=== PATIENT | male | born 1935 | race Caucasian/White ===

== ENCOUNTER 2017-12-14 10:11 | Inpatient (IN) | payer OTHER, MEDICARE ==
[~2017-12-14] VITALS: Ht 177.8 cm; Wt 64.7 kg
--- NOTE | 2017-12-14 11:25 | ED NECK/BACK PAIN COMPLAINT ---
See Addendum History of Present Illness General Chief Complaint: General Adult Stated Complaint: BIBA FOR NAE HIP PAIN Source: patient, family Exam Limitations: no limitations Vital Signs & Intake/Output Vital Signs & Intake/Output Vital Signs Date Time Temp Pulse Resp B/P B/P Pulse O2 O2 Flow FiO2 Mean Ox Delivery Rate 12/14 1328 98.2 80 20 127/67 97 Room Air 12/14 1022 Room Air Room Air 12/14 1012 98.4 88 20 139/80 96 Room Air Allergies Coded Allergies: NO KNOWN ALLERGIES (07/10/11) Triage Note: BIBA FROM HOME WITH REPORT OF INCREASED BILATERAL THIGH SPASMS AND PAIN. PATIENT HAS HX OF PARKINSONS. PATIENT ARRIVES, ALERT, ORIENTED, SPEECH CLEAR. PATIENT REPORTS HX OF BILATERAL HIP SURGERY AND STATES "I HAVE A BROKEN PELVIS". PATIENT CHANGED INTO HOSPITAL GOWN, VITALS OBTAINED. FALL PRECAUTIONS IN PLACED. AWAITING PROVIDER EVAL. Triage Nurses Notes Reviewed? yes Onset: Gradual Duration: getting worse Timing: recent history Quality/Severity: severe, radiation Location: lumbar spine, paraspinous muscles HPI: Patient is a 81-year-old male with a past medical history of multiple falls Parkinson's who lives in a private residence with family members however they do receive home health aide where he states approximately 2 months ago he had a mechanical fall and fractured his pelvis however patient presents emergency room BIBA for concerns of a 3-5 day history of back pain and muscle spasms in burning sensation down his bilateral lower extremities. Patient states that the pain was too severe to get out of bed today patient was brought IN BY AMBULANCE. Patient denies any fevers chills chest pain shortness of breath leg swelling abdominal pain nausea vomiting. Patient can tolerate by mouth. Patient denies any mechanism injury or recent falls Patient states that at rest he has no pain (Bjorn Waggoner) Past History Travel History Traveled to [place] past 21 day No Medical History Any Pertinent Medical History? see below for history Neurological: Parkinson's disease EENT: NONE Cardiovascular: hyperlipidemia, ?IRREGULAR HEART RATE Respiratory: NONE Gastrointestinal: NONE Hepatic: NONE Renal: NONE Musculoskeletal: PELVIC FRACTURE Psychiatric: NONE Endocrine: NONE Blood Disorders: NONE Cancer(s): NONE ORAL AND MAXILLOFACIAL SURGERY RESIDENT/Reproductive: NONE Surgical History Surgical History: non-contributory Psychosocial History Who do you live with Daughter Services at Home None What is your primary language Micronesian Tobacco Use: Never used ETOH Use: denies use Illicit Drug Use: denies illicit drug use Family History Hx Contributory? No (Bjorn Waggoner) Review of Systems Review of Systems Constitutional: Reports: no symptoms. Eyes: Reports: no symptoms. Ears, Nose, Throat, Mouth: Reports: no symptoms. Respiratory: Reports: no symptoms. Cardiovascular: Reports: no symptoms. Gastrointestinal/Abdominal: Reports: no symptoms. Musculoskeletal: Reports: see HPI, back pain, muscle pain. Skin: Reports: no symptoms. Neurological/Psychological: Reports: no symptoms. All Other Systems: Reviewed and Negative (Bjorn Waggoner) Physical Exam Physical Exam General Appearance: no apparent distress, alert, comfortable Head: atraumatic Eyes: Bilateral: normal appearance. Ears, Nose, Throat, Mouth: hearing grossly normal Neck: normal inspection, supple Respiratory: chest non-tender, no respiratory distress Cardiovascular: regular rate/rhythm Peripheral Pulses: 2+ radial (R) Gastrointestinal: normal bowel sounds, soft, tenderness Back: GENERALIZED BACK PAIN UPON PALPATION Extremities: non-tender Neurologic/Psych: awake, alert Skin: intact, normal color Comments: Bilateral lower extremity mild decreased active range of motion with hip flexion however patient was able to perform straight leg raise Bilateral lower extremities dermatomes intact pedal pulses +2 Core Measures CVA/TIA Diagnosis: No (Bjorn Waggoner) Progress Differential Diagnosis: AAA, aortic dissection, C spine injury, carotid dissection, cauda equina syn, herniated disc, myofascial strain, pyelo/UTI, sciatica, spinal cord inj, thoracic outlet syn, T/L spine injury, ureterolithiasis Plan of Care: Orders Procedure Date/time Status Heart Healthy Diet 12/14 D Active TROPONIN LEVEL 12/14 1126 Complete COMPREHENSIVE METABOLIC PANEL 12/14 1126 Complete CBC WITHOUT DIFFERENTIAL 12/14 112 Complete EKG 12/14 1126 Active Laboratory Tests 12/14/17 1140: Anion Gap 9, Estimated GFR > 60, BUN/Creatinine Ratio 26.7 H, Glucose 111 H, Calcium 9.1, Total Bilirubin 0.8, AST 24, ALT 13 L, Alkaline Phosphatase 183 H , Troponin I < 0.01, Total Protein 6.6, Albumin 3.3 L, Globulin 3.3, Albumin/ Globulin Ratio 1.0 L, CBC w Diff NO MAN DIFF REQ, RBC 4.16 L, MCV 86.2, MCH 28.8, MCHC 33.5, RDW 15.9 H, MPV 8.1, Gran % 91.9 H, Lymphocytes % 3.1 L, Monocytes % 4.9, Eosinophils % 0.1, Basophils % 0, Absolute Granulocytes 11.7 H , Absolute Lymphocytes 0.4 L, Absolute Monocytes 0.6, Absolute Eosinophils 0, Absolute Basophils 0 Patient has bilateral lower extremities were neurovascularly intact Patient has nontender abdomen CT scan was resulted in which I discussed results with patient and family members for concerns of multiple compression fractures of lumbar vertebral bodies, Patient was given IV morphine patient was supervised by me for ambulatory trial where he was unable to get out of bed due to pain. Due to patient's past medical history of Parkinson's multiple histories of falls and recent diagnosis of compression fracture of lumbar vertebral bodies that outpatient therapy would be medically harmful Discussed admission with patient and family members who agree Diagnostic Imaging: Viewed by Me: Radiology Read. Radiology Impression: acute abnormality Initial ED EKG: MULTIPLE NONSPECIFIC ARTIFACT, 107 BPM,PVC Comments: PATIENT: SRINIVASAN SANON I PRESENT AGE: 81 PATIENT ACCOUNT NO: [id number] : 33 LOCATION: [facility] ORDERING PHYSICIAN: Bjorn FELICIANO SERVICE DATE: 12/14/17 EXAM TYPE: CAT - CT ABD & PELVIS W/O IV CONTRAS EXAMINATION: CT ABDOMEN AND PELVIS WITHOUT CONTRAST CLINICAL INFORMATION: 81-year-old male with pelvic pain and low back pain. COMPARISON: CT images of abdomen and pelvis from 07/10/2011. TECHNIQUE: Multidetector volumetric imaging was performed from the superior aspect of the liver through the pubic symphysis. Sagittal and coronal reformatted images were obtained on the technologist's workstation. DLP: 486 mGy-cm FINDINGS: LUNG BASES: Atherosclerotic calcification of coronary arteries and thoracic aorta. No pericardial or pleural effusion. Mild bronchiectasis in visualized lower lobes. Linear and curvilinear opacities of atelectasis within the left lower lobe and, to lesser extent, right lower lobe. No overt consolidation. LIVER, GALLBLADDER, AND BILIARY TREE: Liver has normal size, contour and attenuation. No evidence of intrahepatic bile duct dilatation or hepatic mass on these noncontrast images. A 0.5 cm rim calcified gallstone is present within the lumen of the gallbladder. No gallbladder wall edema or pericholecystic fluid. PANCREAS: Pancreas is diffusely atrophied. No peripancreatic edema. SPLEEN: Unremarkable. ADRENAL GLANDS: Unremarkable. KIDNEYS AND URETERS: No nephrolithiasis or hydronephrosis. There are bilateral renal cortical cysts, largest of the left lower pole measuring up to 3.1 cm. The ureters are unremarkable. No evidence of ureterolithiasis or hydronephrosis. The most distal ureteral segments are poorly evaluated due to streak artifact produced by the bilateral hip arthroplasty components. BLADDER: Grossly unremarkable, but suboptimally evaluated due to streak artifact by the arthroplasty hardware. GASTROINTESTINAL TRACT: Bowel loops are normal in caliber. Large amount stool is present within the colon; this suggests possibility of constipation. There is pancolonic diverticulosis without evidence of diverticulitis. No abdominal abscess, ascites or pneumoperitoneum. ABDOMINAL WALL: No acute findings in the abdominal wall. The rectus abdominis muscles are atrophied and fatty replaced. No abdominal wall hernia. LYMPH NODES: No pathologic sized lymph nodes in the abdomen or pelvis. VASCULAR: Atherosclerotic calcification of abdominal aorta, proximal renal arteries and iliofemoral arteries. No aneurysm. No retroperitoneal hematoma. PELVIC VISCERA: Prostate gland is suboptimally visualized due to the streak artifact. The prostate gland currently measures approximately 5 cm transverse, 3.6 cm AP (compared to size of 6.5 x 5.5 cm on 07/10/2011). No pelvic free fluid. OSSEOUS STRUCTURES: Bones are diffusely osteoporotic. Concave compression fracture deformity of the L1 inferior endplate resulting in approximately 35% central height loss of the L1 vertebral body. Also, there is a subacute compression fracture of the L2 vertebral body with extension of gas into the fracture plane adjacent to the inferior endplate. There is approximately 25-30% central height loss of the L2 vertebral body. There is mild concavity of the endplates of L3, L4 and L5 vertebra without acute fractures. There are insufficiency fractures with surrounding sclerosis and ossific debris of bilateral sacral ala and of the adjacent left iliac bone with intra-articular extension of the fracture at the posterior left sacroiliac joint. Findings include fracture buckling of cortex through the region of junction of the S2 and S3 segments. Again, pelvic bones are suboptimally evaluated due to the streak artifact produced by the hip arthroplasty hardware. There is callus around fractures of right and left superior rami and right pubic bone. Also, callus and heterotopic ossification are observed around displaced fractures of the inferior pubic rami. IMPRESSION: 1. Pancolonic diverticulosis without diverticulitis. 2. Cholelithiasis without cholecystitis. 3. No acute findings along the urinary tracts. There are bilateral renal cortical cysts. 4. Skeletal findings include diffuse osteoporosis, compression fractures of the L1 and L2 vertebral bodies, and insufficiency fractures of the sacrum, adjacent left iliac bone and pubic rami. DICTATED BY: Juan Alejo MD DATE/TIME DICTATED:12/14/171235 ACUPUNCTURIST:GUERO DATE/TIME TRANSCRIBED:12/14/171235 CONFIDENTIAL, DO NOT COPY WITHOUT APPROPRIATE AUTHORIZATION. <Electronically signed in Other Vendor System> SIGNED BY: Juan Alejo MD 12/14/17 1301 (Bjorn Waggoner) Departure Departure Disposition: STILL A PATIENT Condition: Stable Clinical Impression Primary Impression: Compression fracture of L1 lumbar vertebra Secondary Impressions: Compression fracture of L2 lumbar vertebra, Inability to bear weight Referrals: Remington Woodward MD (PCP/Family) Departure Forms: Customer Survey General Discharge Information Admission Note Spoke With: Sha AZUL,Norberto Sewell Documentation of Exam: Documentation of any treatments & extenuating circumstances including Concerns Regarding Discharge (functional status, medication knowledge or non-compliance, living conditions, etc.) that warrant an admission rather than observation: [ Patient requires general medicine admission for concerns of multiple compression fractures of lumbar vertebral bodies, patient was unable to ambulate due to pain patient cries IV pain medication and possible short-term rehabilitation after admission,] (Bjorn Waggoner) PA/INSURANCE AND BENEFITS CLERK Co-Sign Statement Statement: ED Attending supervision documentation- [x] I saw and evaluated the patient. I have also reviewed all the pertinent lab results and diagnostic results. I agree with the findings and the plan of care as documented in the PA's/INSURANCE AND BENEFITS CLERK's documentation. Patient presents for evaluation of a severe burning back pain. Physical examination reveals a comfortable appearing gentleman while at rest with normal sensation to the lower extremities. [] I have reviewed the ED Record and agree with the PA's/INSURANCE AND BENEFITS CLERK's documentation. [] Additions or exceptions (if any) to the PAs/INSURANCE AND BENEFITS CLERK's note and plan are summarized below: [] (Audra AZUL,Jason Bender)
[2017-12-14 11:54] LABS: ABSOLUTE BASOPHIL COUNT 0 /CUMM (0.0-0.2); ABSOLUTE EOSINOPHIL COUNT 0 /CUMM (0.0-0.7); ABSOLUTE GRANULOCYTE CT 11.7 /CUMM (1.4-6.5); ABSOLUTE LYMPH COUNT 0.4 /CUMM (1.2-3.4); ABSOLUTE MONOCYTE COUNT 0.6 /CUMM (0.10-0.60); BASOPHIL % 0 % (0.0-2.0); EOSINOPHIL % 0.1 % (0-5); HEMATOCRIT 35.9 % (42-52); MEAN CORPUSCULAR HGB 28.8 PG (27.0-31.0); MEAN CORPUSCULAR HGB CONC 33.5 G/DL (33.0-37.0); MEAN CORPUSCULAR VOLUME 86.2 FL (80.0-94.0); MEAN PLATELET VOLUME 8.1 FL (7.4-10.4); PLATELET COUNT 426 /CUMM (130-400); RBC DISTRIBUTION WIDTH 15.9 % (11.5-14.5); RED BLOOD CELL CT 4.16 /CUMM (4.70-6.10); WHITE BLOOD CELL COUNT 12.7 /CUMM (4.8-10.8)
[2017-12-14 12:34] LABS: GRANULOCYTE % 91.9 % (42.2-75.2)
--- NOTE | 2017-12-14 13:01 | CT SCAN REPORT ---
EXAMINATION: CT ABDOMEN AND PELVIS WITHOUT CONTRAST CLINICAL INFORMATION: 81-year-old male with pelvic pain and low back pain. COMPARISON: CT images of abdomen and pelvis from 07/10/2011. TECHNIQUE: Multidetector volumetric imaging was performed from the superior aspect of the liver through the pubic symphysis. Sagittal and coronal reformatted images were obtained on the technologist's workstation. DLP: 486 mGy-cm FINDINGS: LUNG BASES: Atherosclerotic calcification of coronary arteries and thoracic aorta. No pericardial or pleural effusion. Mild bronchiectasis in visualized lower lobes. Linear and curvilinear opacities of atelectasis within the left lower lobe and, to lesser extent, right lower lobe. No overt consolidation. LIVER, GALLBLADDER, AND BILIARY TREE: Liver has normal size, contour and attenuation. No evidence of intrahepatic bile duct dilatation or hepatic mass on these noncontrast images. A 0.5 cm rim calcified gallstone is present within the lumen of the gallbladder. No gallbladder wall edema or pericholecystic fluid. PANCREAS: Pancreas is diffusely atrophied. No peripancreatic edema. SPLEEN: Unremarkable. ADRENAL GLANDS: Unremarkable. KIDNEYS AND URETERS: No nephrolithiasis or hydronephrosis. There are bilateral renal cortical cysts, largest of the left lower pole measuring up to 3.1 cm. The ureters are unremarkable. No evidence of ureterolithiasis or hydronephrosis. The most distal ureteral segments are poorly evaluated due to streak artifact produced by the bilateral hip arthroplasty components. BLADDER: Grossly unremarkable, but suboptimally evaluated due to streak artifact by the arthroplasty hardware. GASTROINTESTINAL TRACT: Bowel loops are normal in caliber. Large amount stool is present within the colon; this suggests possibility of constipation. There is pancolonic diverticulosis without evidence of diverticulitis. No abdominal abscess, ascites or pneumoperitoneum. ABDOMINAL WALL: No acute findings in the abdominal wall. The rectus abdominis muscles are atrophied and fatty replaced. No abdominal wall hernia. LYMPH NODES: No pathologic sized lymph nodes in the abdomen or pelvis. VASCULAR: Atherosclerotic calcification of abdominal aorta, proximal renal arteries and iliofemoral arteries. No aneurysm. No retroperitoneal hematoma. PELVIC VISCERA: Prostate gland is suboptimally visualized due to the streak artifact. The prostate gland currently measures approximately 5 cm transverse, 3.6 cm AP (compared to size of 6.5 x 5.5 cm on 07/10/2011). No pelvic free fluid. OSSEOUS STRUCTURES: Bones are diffusely osteoporotic. Concave compression fracture deformity of the L1 inferior endplate resulting in approximately 35% central height loss of the L1 vertebral body. Also, there is a subacute compression fracture of the L2 vertebral body with extension of gas into the fracture plane adjacent to the inferior endplate. There is approximately 25-30% central height loss of the L2 vertebral body. There is mild concavity of the endplates of L3, L4 and L5 vertebra without acute fractures. There are insufficiency fractures with surrounding sclerosis and ossific debris of bilateral sacral ala and of the adjacent left iliac bone with intra-articular extension of the fracture at the posterior left sacroiliac joint. Findings include fracture buckling of cortex through the region of junction of the S2 and S3 segments. Again, pelvic bones are suboptimally evaluated due to the streak artifact produced by the hip arthroplasty hardware. There is callus around fractures of right and left superior rami and right pubic bone. Also, callus and heterotopic ossification are observed around displaced fractures of the inferior pubic rami. IMPRESSION: 1. Pancolonic diverticulosis without diverticulitis. 2. Cholelithiasis without cholecystitis. 3. No acute findings along the urinary tracts. There are bilateral renal cortical cysts. 4. Skeletal findings include diffuse osteoporosis, compression fractures of the L1 and L2 vertebral bodies, and insufficiency fractures of the sacrum, adjacent left iliac bone and pubic rami.
--- NOTE | 2017-12-14 14:10 | History & Physical ---
[facility]9: General Information and HPI MD Statement: I have seen and personally examined SRINIVASAN SANON I and documented this H&P. The patient is a 81 year old M who presented with a patient stated chief complaint of [bilateral leg pain]. Source of Information: patient, family Exam Limitations: physical impairment History of Present Illness: 81-year-old gentleman with past medical history of Parkinson's disease, recent pelvic fracture in September 2017, hyperlipidemia, diverticulosis, colon polyp, GI bleed [in 2010 patient had 1 unit of blood transfusion], BPH, peptic ulcer disease was brought in by his daughter with complaints of bilateral thigh pain with no radiation. Apparently patient was in usual state of health until 5 days ago, developed moderate pain in both thighs more of burning in sensation with no radiation or relieving factors. Today patient woke up with severe 10 x 10 bilateral burning sensation in both eyes with no radiation, numbness, decreased sensation. Patient denies fall, loss of consciousness, palpitations, dizziness, incontinence of bowel and bladder, chest pain, shortness of breath, headache, weakness. Patient lives with this daughter and cousin and has a health aide at home. Allergies/Medications Allergies: Coded Allergies: NO KNOWN ALLERGIES (07/10/11) Home Med list Carbidopa/Levodopa (Carbidopa-Levodopa 25-100 Tab) 25 MG-100 MG TABLET 1 TAB PO TID PARKINSONS (Reported) Finasteride 5 MG TABLET 1 TAB PO DAILY PROSTATE (Reported) [place]-3 Fatty Acids/Fish Oil (Fish Oil 1,000 MG Capsule) 340 MG-1,000 MG CAPSULE 2 CAP PO DAILY SUPPLEMENT (Reported) Simvastatin (Simvastatin*) 80 MG TABLET 1 TAB PO DAILY CHOLESTEROL (Reported) Tamsulosin HCl 0.4 MG CAP.ER.24H 2 CAP PO DAILY PROSTATE (Reported) Venlafaxine HCl (Venlafaxine HCl ER) 75 MG CAP.ER.24H 1 CAP PO DAILY ANXIETY (Reported) Compliance With Home Meds: GOOD Past History Travel History Traveled to [place] past 21 day No Medical History Neurological: Parkinson's disease EENT: NONE Cardiovascular: hyperlipidemia, ?IRREGULAR HEART RATE Respiratory: NONE Gastrointestinal: NONE Hepatic: NONE Renal: NONE Musculoskeletal: PELVIC FRACTURE Psychiatric: NONE Endocrine: NONE Blood Disorders: NONE Cancer(s): NONE 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 Home Who Do You Live With? child Services at Home: None Primary Language: Lao Smoking Status: Never Smoked ETOH Use: denies use Illicit Drug Use: denies illicit drug use Functional Ability ADLs Needs Assist: dressing, eating, toileting, bathing. Ambulation: walker IADLs Needs Assist: shopping, housework, finances, food prep, telephone, transportation, medication admin. Review of Systems Review of Systems Constitutional: Reports: weakness. Cardiovascular: Reports: no symptoms. Respiratory: Reports: no symptoms. GI: Reports: no symptoms. Genitourinary: Reports: no symptoms. Musculoskeletal: Reports: muscle pain (b/l thigh pain). Exam & Diagnostic Data Last 24 Hrs of Vital Signs/I&O Vital Signs Date Time Temp Pulse Resp B/P B/P Pulse O2 O2 Flow FiO2 Mean Ox Delivery Rate 12/14 1919 Room Air 12/14 1645 99.1 95 18 122/60 94 Room Air 12/14 1518 99.1 85 20 119/58 94 Room Air Room Air 12/14 1328 98.2 80 20 127/67 97 Room Air 12/14 1022 Room Air Room Air 12/14 1012 98.4 88 20 139/80 96 Room Air Intake & Output 12/14 1600 12/14 0800 12/14 0000 Intake Total 0 Output Total Balance 0 Intake, Oral 0 Physical Exam General Appearance Alert, Oriented X3, Cooperative Cardiovascular Regular Rate, Normal S1, Normal S2 Lungs Clear to Auscultation Abdomen Soft Neurological Normal Tone, Sensation Intact, dlow speech Extremities No Edema Last 24 Hrs of Labs/Silvestre: Laboratory Tests 12/14/17 1447: Urinalysis LIGHT H, Urine Color YEL, Urine Clarity CLEAR, Urine pH 6.0, Ur Specific [place] 1.020, Urine Protein TRACE H, Urine Ketones NEG, Urine Nitrite NEG, Urine Bilirubin NEG, Urine Urobilinogen 0.2, Ur Leukocyte Esterase NEG, Ur Microscopic SEDIMENT EXAMINED, Urine RBC 10-15 H, Urine WBC 1-3 H, Ur Epithelial Cells FEW, Urine Bacteria FEW H, Hyaline Casts RARE H, Granular Casts RARE H, Urine Mucus FEW, Urine Hemoglobin TRACE-INTACT H, Urine Glucose NEG 12/14/17 1140: Anion Gap 9, Estimated GFR > 60, BUN/Creatinine Ratio 26.7 H, Glucose 111 H, Calcium 9.1, Total Bilirubin 0.8, AST 24, ALT 13 L, Alkaline Phosphatase 183 H , Creatine Kinase 32 L, Troponin I < 0.01, Total Protein 6.6, Albumin 3.3 L, Globulin 3.3, Albumin/Globulin Ratio 1.0 L, CBC w Diff NO MAN DIFF REQ, RBC 4.16 L, MCV 86.2, MCH 28.8, MCHC 33.5, RDW 15.9 H, MPV 8.1, Gran % 91.9 H, Lymphocytes % 3.1 L, Monocytes % 4.9, Eosinophils % 0.1, Basophils % 0, Absolute Granulocytes 11.7 H, Absolute Lymphocytes 0.4 L, Absolute Monocytes 0.6, Absolute Eosinophils 0, Absolute Basophils 0 Diagnostic Data CXR Results There is no acute abnormality of the chest Other Results ct abd and pelvia IMPRESSION: 1. Pancolonic diverticulosis without diverticulitis. 2. Cholelithiasis without cholecystitis. 3. No acute findings along the urinary tracts. There are bilateral renal cortical cysts. 4. Skeletal findings include diffuse osteoporosis, compression fractures of the L1 and L2 vertebral bodies, and insufficiency fractures of the sacrum, adjacent left iliac bone and pubic rami. Assessment/Plan Assessment: 81-year-old gentleman with past medical history of peptic ulcer disease, dyslipidemia, diverticulosis, colonic polyps, Parkinson's disease, anxiety, benign prostatitic hypertrophy, GI bleed, was brought in to [facility] due to bilateral lower extremity pain, back pain status post secondary to to fall 2 months ago. Admission vitals Temperature 98.2, pulse rate 80, respiratory rate 20, blood pressure 127/67, saturation 97 at room air. Admission labs W BC 12.7, hemoglobin 12, hematocrit 35.9, platelet count 426, sodium 142, potassium 4.4, BUN 16, creatinine 0.6, calcium 9.1, AST 24 ALT 13, alkaline phosphatase 183, troponin less than 0.01. Imaging CT abdomen and pelvis 1. Pancolonic diverticulosis without diverticulitis. 2. Cholelithiasis without cholecystitis. 3. No acute findings along the urinary tracts. There are bilateral renal cortical cysts. 4. Skeletal findings include diffuse osteoporosis, compression fractures of the L1 and L2 vertebral bodies, and insufficiency fractures of the sacrum, adjacent left iliac bone and pubic rami. ED treatment Morphine 2 g IV twice. Assessment and plan 1. Physical deconditioning/ Gait instability 2. Parkinsonism * Admitted in [facility]. Given his physical deconditioning patient might need short-term rehabilitation. * Fall precaution * Pain management with gabapentin, Percocet, IV Tylenol * Continue his home medications * Physical therapy consult * Diet-regular diet * GI prophylaxis-omeprazole * DVT prophylaxis Lovenox * Code-Corteull code Home medications 1. Sinemet-patient's medication dose was recently changed and needs to be confirmed with this daughter. 2. Alendronate 3. Tamsulosin 4. Rosuvastatin 5. Venlafaxine 6. Percocet As Ranked By This Provider Problem List: 1. Compression fracture of L2 lumbar vertebra 2. Compression fracture of L1 lumbar vertebra 3. Parkinson's disease Core Measures/Misc (05/03) Acute Coronary Syndrome ACS Diagnosis: No Congestive Heart Failure Congestive Heart Failure Diagnosis No Cerebrovascular Accident CVA/TIA Diagnosis: No VTE (View Protocol) VTE Risk Factors Age>40 No Mechanical VTE Prophylaxis d/t Other No VTE Pharm Prophylaxis d/t Other Sepsis (View protocol) Sepsis Present: No Alisia Michaels MD 12/14/17 1550: Attending MD Review Statement Attending Statement Attending MD Statement: examined this patient, discuss w/resident/PA/DELICATE FABRICS PRESSER, agreed w/resident/PA/DELICATE FABRICS PRESSER, discussed with family, reviewed EMR data (avail), discussed with nursing, reviewed images, amended to note Attending Assessment/Plan: 81-year-old male with past medical history significant for Parkinson's disease, hyperlipidemia and history of pelvic fracture in the past who is presenting with complaint of excruciating bilateral lower extremity pain. Also recently his Sinemet dose has been changed. Last September he had a mechanical fall which ended up in the pelvic fracture. Presenting today with bilateral thigh pain which is mostly burning in nature. Patient denies any urinary or bowel incontinence. He does use a walker at home to walk and lately it has been difficult due to bilateral lower extremity pain. CT abd and pelvis mentioned diffuse osteoporosis, compression fractures of the L1 and L2 vertebral bodies, and insufficiency fractures of the sacrum, adjacent left iliac bone and pubic rami. Vital Signs Date Time Temp Pulse Resp B/P B/P Pulse O2 O2 Flow FiO2 Mean Ox Delivery Rate 12/14 1518 99.1 85 20 119/58 94 Room Air Room Air 12/14 1328 98.2 80 20 127/67 97 Room Air 12/14 1022 Room Air Room Air 12/14 1012 98.4 88 20 139/80 96 Room Air on exam; aox3, nad cv; s1,s2, rrr resp; clear abd; soft,nt, bs+ ext; no edema neuro: limited, LE b/l strength 4/5 . Pt did not participate 2/2 to pain in le. Laboratory Tests 12/14 12/14 1447 1140 Chemistry Sodium (137 - 145 mmol/L) 142 Potassium (3.5 - 5.1 mmol/L) 4.4 Chloride (98 - 107 mmol/L) 101 Carbon Dioxide (22 - 30 mmol/L) 31 H Anion Gap (5 - 16) 9 BUN (9 - 20 mg/dL) 16 Creatinine (0.7 - 1.2 mg/dL) 0.6 L Estimated GFR (>60 ml/min) > 60 BUN/Creatinine Ratio (7 - 25 %) 26.7 H Glucose (65 - 99 mg/dL) 111 H Calcium (8.4 - 10.2 mg/dL) 9.1 Total Bilirubin (0.2 - 1.3 mg/dL) 0.8 AST (17 - 59 U/L) 24 ALT (21 - 72 U/L) 13 L Alkaline Phosphatase (< 127 U/L) 183 H Creatine Kinase (55 - 170 U/L) Pending Troponin I (<0.11 ng/ml) < 0.01 Total Protein (6.3 - 8.2 g/dL) 6.6 Albumin (3.5 - 5.0 g/dL) 3.3 L Globulin (1.9 - 4.2 gm/dL) 3.3 Albumin/Globulin Ratio (1.1 - 2.2 %) 1.0 L Hematology CBC w Diff NO MAN DIFF REQ WBC (4.8 - 10.8 /CUMM) 12.7 H RBC (4.70 - 6.10 /CUMM) 4.16 L Hgb (14.0 - 18.0 G/DL) 12.0 L Hct (42 - 52 %) 35.9 L MCV (80.0 - 94.0 FL) 86.2 MCH (27.0 - 31.0 PG) 28.8 MCHC (33.0 - 37.0 G/DL) 33.5 RDW (11.5 - 14.5 %) 15.9 H Plt Count (130 - 400 /CUMM) 426 H MPV (7.4 - 10.4 FL) 8.1 Gran % (42.2 - 75.2 %) 91.9 H Lymphocytes % (20.5 - 51.1 %) 3.1 L Monocytes % (1.7 - 9.3 %) 4.9 Eosinophils % (0 - 5 %) 0.1 Basophils % (0.0 - 2.0 %) 0 Absolute Granulocytes (1.4 - 6.5 /CUMM) 11.7 H Absolute Lymphocytes (1.2 - 3.4 /CUMM) 0.4 L Absolute Monocytes (0.10 - 0.60 /CUMM) 0.6 Absolute Eosinophils (0.0 - 0.7 /CUMM) 0 Absolute Basophils (0.0 - 0.2 /CUMM) 0 Urines Urinalysis LIGHT H Urine Color (YEL,AMB,STR) YEL Urine Clarity (CLEAR) CLEAR Urine pH (5.0 - 8.0) 6.0 Ur Specific [place] (1.001 - 1.035) 1.020 Urine Protein (NEG,<30 MG/DL) TRACE H Urine Ketones (NEG) NEG Urine Nitrite (NEG) NEG Urine Bilirubin (NEG) NEG Urine Urobilinogen (0.1 - 1.0 EU/dl) 0.2 Ur Leukocyte Esterase (NEG) NEG Ur Microscopic SEDIMENT EXAMINED Urine RBC (0 - 5 /HPF) 10-15 H Urine WBC (0 - 2 /HPF) 1-3 H Ur Epithelial Cells (NONE,FEW) FEW Urine Bacteria (NEG/NONE) FEW H Hyaline Casts (0/LPF) RARE H Granular Casts (NONE /LPF) RARE H Urine Mucus (FEW,NONE) FEW Urine Hemoglobin (NEG) TRACE-INTACT H Urine Glucose (N MG/DL) NEG CT fdgs: as noted above. A/P; 81-year-old male with past medical history significant for Parkinson's disease, hyperlipidemia and history of pelvic fracture in the past admitted with bilateral lower extremity excruciating pain. Patient also has difficulty in relating. Patient admitted to medicine. His pain can be managed with a combination of nonionic narcotic at a low dose narcotic medication. Agree with using gabapentin for the pain control. Please confirm his Sinemet dose of his neurologist. Continue the rest of his home medications. Patient will need to be evaluate by physical therapy. Heparin subcutaneous for DVT prophylaxis patient is a full code Mukesh De Jesus 12/14/17 1642: Resident Review Statement Resident Statement: examined this patient, discussed with diversity intern, agreed with diversity intern, discussed with family, reviewed EMR data (avail), reviewed images, amended to note Other Findings: 81-year-old gentleman with past medical history of Parkinson's disease, recent hip fracture with no surgical intervention, hyperlipidemia presents with bilateral thigh burning pain of varying intensities of one-week duration. He has also been feeling weak, and his walking capacity has been declining as well. He uses a walker at baseline, but his pain symptoms have limited his ambulatory abilities. Of note, patient is on very high-dose simvastatin (80 mg) and this has been associated with severe myopathy, especially in the elderly. Worsening ambulatory status may be contributing to his weak quadriceps and hence affecting his walking abilities. Admit to general medicine floor. Physical therapy evaluation. Please check CK, especially on high-dose simvastatin. Gentle fluid hydration. Decrease dose of simvastatin or switch to another statin, question if statin indeed is necessary at this point. Please check vitamin D levels, supplement if needed. Burning bilateral thigh pain could be secondary to cutaneous femoral nerve involvement (?meralgia paraesthitica), trial of gabapentin low-dose for some symptomatic improvement. For his pubic ramus fracture, early mobilization is prudent. Optimal pain control to aid with ambulation, with IV Tylenol and narcotic when necessary. Rule out infection with urinalysis as well as chest x-ray, especially in the setting of mild leukocytosis. May check TSH. Check orthostatic vitals. Restart alpha-hailee, if negative, especially given patient's history of Parkinson's disease. Please confirm carbidopa/levodopa dose with patient's neurologist. Eventually may need STR. Repeat PT evaluation. Full code. Lovenox for DVT prophylaxis. Regular diet.
[2017-12-14] MEDS ORDERED: TAMSULOSIN HCL0.4 M1 PO (14:23)
[2017-12-14] MEDS ORDERED: FINASTERIDE5 M1 PO (14:23)
[2017-12-14] MEDS ORDERED: SIMVASTATIN80 M1 PO (14:23)
[2017-12-14] MEDS ORDERED: VENLAFAXINE HCL75 M1 PO (14:24)
[2017-12-14] MEDS ORDERED: FISH OIL 1,0001 EACH PO (14:24)
[2017-12-14] MEDS ORDERED: CARBIDOPA-LEVO1 EAC7 PO (14:24)
--- NOTE | 2017-12-14 15:58 | RADIOLOGY REPORT ---
EXAMINATION: XR PORTABLE CHEST CLINICAL INFORMATION: Productive cough. COMPARISON: Chest x-ray 07/24/2014 TECHNIQUE: Portable frontal view of the chest was obtained. 3:19 PM FINDINGS: Lung volume is low. There is a band of linear atelectasis at left lung base. There is no acute infiltrate. There is no pulmonary vascular congestion or pleural effusion. There is no pneumothorax. The heart size is normal. The Cardiac and mediastinal contours are normal. There is deformity old healed fracture of the left proximal humerus unchanged since prior exam. IMPRESSION: There is no acute abnormality of the chest.
[2017-12-14 16:45] VITALS: BP 122/60
--- NOTE | 2017-12-14 17:50 | PN- Student ---
Subjective Subjective: Mr. Mathews is 81 y/o gentleman with a PMH of peptic ulcer disease, dyslipidemia, diverticulosis, colonic polyps, Parkinson's disease, anxiety, benign prostatitic hypertrophy and GI bleed, who was brought in to [facility] due to bilateral lower extremity pain and back pain secondary to a fall that he had 2 months ago, during which he broke his pelvis. Patient complains of increased back pain for the past 3-5 days and pain in the front of his thighs that have a burning quality. This morning he tried to walk but the pain in his thighs was too severe (05/26) so he called an ambulance. He denies any fevers, chills, headaches, chest pain, dizziness, SOB, abdominal pain, nausea, vomiting, diarrhea, changes in his appetite, or in his bladder or bowel movements. Patient also denies any recent falls. Allergies: None Home meds: Current Medications Sig/Alexandra Start time Last Medication Dose Stop Time Status Admin Enoxaparin Sodium 40 MG DAILY 12/15 899 AC (Lovenox) Fish Oil 2,100 MG DAILY 12/15 899 AC ([place]-3) Venlafaxine HCl 75 MG DAILY 12/15 0900 AC (Effexor Xr) Acetaminophen 1,000 MG Q12 12/14 2100 AC (Ofirmev) Carbidopa/Levodopa 1 TAB TID 12/14 1551 AC (Sinemet 25/100MG) Finasteride 5 MG DAILY 12/14 1551 AC (Proscar) Oxycodone/ 1 TAB Q6P PRN 12/14 1545 AC Acetaminophen (Percocet) Medical history: Neurological: Parkinson's disease EENT: NONE Cardiovascular: dyslipidemia Respiratory: NONE Gastrointestinal: GI bleed, diverticulosis, colonic polyps, peptic ulcer disease Hepatic: NONE Renal: NONE Musculoskeletal: pelvic fracture, shoulder fracture Psychiatric: anxiety Endocrine: NONE Blood Disorders: NONE Cancer: NONE 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 Social history: Patient lives with daughter at a private residence. He uses a walker and receives aid 9 hours a day. He denies smoking, alcohol or illicit drug use. ROS: Constitutional: Reports weakness EENT: Reports no symptoms. Respiratory: Reports no symptoms. Cardiovascular: Reports no symptoms. GI: Reports no symptoms. Genitourinary: Reports no symptoms. Musculoskeletal: Reports worsening chronic back pain, decrease range of motion, tenderness and pain in his thights. Skin: Reports no symptoms. Neurological/Psychological: Reports no symptoms. Hematologic/Endocrine: Reports no symptoms. Immunologic/Allergic: Reports no symptoms. All Other Systems: Reviewed and Negative Objective Objective: Vital Signs Date Time Temp Pulse Resp B/P B/P Pulse O2 O2 Flow FiO2 Mean Ox Delivery Rate 12/14 1518 99.1 85 20 119/58 94 Room Air Room Air 12/14 1328 98.2 80 20 127/67 97 Room Air 12/14 1022 Room Air Room Air 12/14 1012 98.4 88 20 139/80 96 Room Air Physical Exam General Appearance: no apparent distress, alert, comfortable, cooperative, oriented x3 Head: atraumatic Eyes: Bilateral: normal appearance, CN II & III normal Ears, Nose, Throat, Mouth: hearing grossly normal Neck: normal inspection, supple Respiratory: chest non-tender, no respiratory distress, crackles heard on auscultation Cardiovascular: regular rate/rhythm Peripheral Pulses: 2+ radial (R) Gastrointestinal: normal bowel sounds Back: generalized back pain upon palpation Extremities: non-tender Neurologic/Psych: awake, alert Skin: intact, normal color Comments: Bilateral lower extremity mild decreased active range of motion Bilateral lower extremities dermatomes intact Imaging: IMPRESSION: 1. Pancolonic diverticulosis without diverticulitis. 2. Cholelithiasis without cholecystitis. 3. No acute findings along the urinary tracts. There are bilateral renal cortical cysts. 4. Skeletal findings include diffuse osteoporosis, compression fractures of the L1 and L2 vertebral bodies, and insufficiency fractures of the sacrum, adjacent left iliac bone and pubic rami. Results Results: Laboratory Tests 12/14/17 1447: Urinalysis LIGHT H, Urine Color YEL, Urine Clarity CLEAR, Urine pH 6.0, Ur Specific [place] 1.020, Urine Protein TRACE H, Urine Ketones NEG, Urine Nitrite NEG, Urine Bilirubin NEG, Urine Urobilinogen 0.2, Ur Leukocyte Esterase NEG, Ur Microscopic SEDIMENT EXAMINED, Urine RBC 10-15 H, Urine WBC 1-3 H, Ur Epithelial Cells FEW, Urine Bacteria FEW H, Hyaline Casts RARE H, Granular Casts RARE H, Urine Mucus FEW, Urine Hemoglobin TRACE-INTACT H, Urine Glucose NEG 12/14/17 1140: Anion Gap 9, Estimated GFR > 60, BUN/Creatinine Ratio 26.7 H, Glucose 111 H, Calcium 9.1, Total Bilirubin 0.8, AST 24, ALT 13 L, Alkaline Phosphatase 183 H , Creatine Kinase 32 L, Troponin I < 0.01, Total Protein 6.6, Albumin 3.3 L, Globulin 3.3, Albumin/Globulin Ratio 1.0 L, CBC w Diff NO MAN DIFF REQ, RBC 4.16 L, MCV 86.2, MCH 28.8, MCHC 33.5, RDW 15.9 H, MPV 8.1, Gran % 91.9 H, Lymphocytes % 3.1 L, Monocytes % 4.9, Eosinophils % 0.1, Basophils % 0, Absolute Granulocytes 11.7 H, Absolute Lymphocytes 0.4 L, Absolute Monocytes 0.6, Absolute Eosinophils 0, Absolute Basophils 0 Abdomen/Pelvis CT: 1. Pancolonic diverticulosis without diverticulitis. 2. Cholelithiasis without cholecystitis. 3. No acute findings along the urinary tracts. There are bilateral renal cortical cysts. 4. Skeletal findings include diffuse osteoporosis, compression fractures of the L1 and L2 vertebral bodies, and insufficiency fractures of the sacrum, adjacent left iliac bone and pubic rami. Assessment/Plan Assessment: Mr. Mathews is 81 y/o gentleman with a PMH of peptic ulcer disease, dyslipidemia, diverticulosis, colonic polyps, Parkinson's disease, anxiety, benign prostatitic hypertrophy and GI bleed, who was brought in to [facility] due to bilateral lower extremity pain and back pain secondary to a fall that he had 2 months ago, during which he broke his pelvis. Patient complains of increased back pain for the past 3-5 days and pain in the front of his thighs that have a burning quality. 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 Differential diagnoses could be: - rhabdomyolisis d/t statins: patient is in a high dose of statins which has been related with muscle wasting. CK levels are not elevated, making this less likely - lumbar radiculopathy: patient has compression fractures in L1 & L2. L1 involvement would include sensory loss in the inguinal region. L2 involvement would also have decreased sensation over the anterior thigh down to the medial aspect of the lower leg. Our patient has increased burning sensation in his anterior and lateral thigh, which makes this option less likely - bone metastasis from prostate cancer: patient has BPH and takes Finasteride, which may increase the risk of developing high-grade prostate cancer. Patient denies any problems urinating or any other symptoms besides the pain. CT scan and Chest X-Ray didn' t show any osteoblastic bone enhancements. - drug induced: patient's medications include Venlafaxine which has been associated with weakness and burning sensation. Problem list and Plan: 1. Back and leg pain: - Follow up with Ortho - Pain management: We are going to administer Acetaminophen for back pain as the pain seems to be caused by the compression fractures that were seen in L1 & L2. Gabapentin will be administered for leg pain as ew think it is neuropathic. The patient uses Percocet for pain relief and it will be available for administration as needed. - PT consult 2. Parkinson's disease: - Verify recent change in Sinemet dosage as that may be contributing to his recurrent falls - Follow up with neuro as an outpatient to assess if Sinemet should be continue at the increased dose (is it still effective?) or if it should be change to another medication (dopamine agonists? Selegiline? Entacapone?) 3. BPH: - Stop Finasteride 4. Dyslipidemia: - Stop statin as the dose is too high (80 mg). Due to the patient's age, use of statins should be reevaluated as high cholesterol is normal in increased age. The use of such high doses has been linked to myopathy and weakness (which may contribute to the patient's recurrent falls) so if cholesterol control is crucial, a change to another medication should be considered. Follow with PCP to assess present need and/or change in hypercholesterolemia management. 5. Anxiety: - Stop Venlafaxine as it may be the cause of the patien's current complain - Follow up with PCP/psychiatry for a new medication for the patient psychiatric complains
[2017-12-14 21:33] VITALS: BP 102/64
--- NOTE | 2017-12-15 04:54 | PN- Housestaff ---
Vikas AZUL,Beatriz 12/15/17 0454: Subjective Follow-up For: Pain both thighs, compression L1, L2 fracture Complaints: no complaints Subjective: Patient seen and examined at bedside. No overnight events. Patient says that his both thigh pain has reduced to 3/10. He slept well. He denies pain in both hip joints, legs, so shortness of breath, chest pain. Review of Systems Constitutional: Reports: no symptoms, see HPI. Objective Last 24 Hrs of Vital Signs/I&O Vital Signs Date Time Temp Pulse Resp B/P B/P Pulse O2 O2 Flow FiO2 Mean Ox Delivery Rate 12/15 06 98.3 93 20 102/60 93 Room Air 12/14 2133 98.2 102 20 102/64 92 Room Air 12/14 1919 Room Air 12/14 1645 99.1 95 18 122/60 94 Room Air 12/14 1518 99.1 85 20 119/58 94 Room Air Room Air 12/14 1328 98.2 80 20 127/67 97 Room Air Intake & Output 12/15 1600 12/15 0800 12/15 0000 Intake Total 240 200 Output Total 300 425 Balance -60 -225 Intake, Oral 240 200 Output, Urine 300 425 Patient 154 lb 156 lb Weight Physical Exam General Appearance: Alert, Oriented X3, Cooperative, No Acute Distress Cardiovascular: Regular Rate, Normal S1, Normal S2, No Murmurs Lungs: Clear to Auscultation Abdomen: Soft, No Tenderness, No Hepatospenomegaly Neurological: Normal Speech, Normal Tone, Sensation Intact, Cranial Nerves 3-12 NL Extremities: No Cyanosis, No Edema, Normal Pulses Vascular: Normal Pulses Current Medications: Current Medications Sig/Alexandra Start time Last Medication Dose Route Stop Time Status Admin Acetaminophen 1,000 MG Q12 12/14 2100 AC 12/15 IV 0836 Carbidopa/Levodopa 1 TAB TID 12/14 1551 AC 12/15 PO 0830 Enoxaparin Sodium 40 MG DAILY 12/15 899 AC 12/15 SC 0832 Finasteride 5 MG DAILY 12/14 1551 AC 12/15 PO 0830 Fish Oil 2,100 MG DAILY 12/15 09 AC 12/15 PO 0831 Gabapentin 100 MG TID 12/15 09 AC 12/15 PO 0832 Gabapentin 100 MG ONCE ONE 12/14 1899 DC 12/14 PO 12/14 Morphine Sulfate 0 .STK-MED ONE 12/14 1358 DC .ROUTE Morphine Sulfate 2 MG ONCE ONE 12/14 1345 DC 12/14 IV 12/14 1346 1356 Morphine Sulfate 0 .STK-MED ONE 12/14 1137 DC .ROUTE Morphine Sulfate 2 MG ONCE ONE 12/14 1130 DC 12/14 IV 12/14 1131 1145 Oxycodone/ 1 TAB Q6P PRN 12/14 1545 AC Acetaminophen PO Venlafaxine HCl 75 MG DAILY 12/15 0900 AC 12/15 PO 0831 Last 24 Hrs of Lab/Silvestre Results Last 24 Hrs of Labs/Mics: Laboratory Tests 12/15/17 0735: Anion Gap 9, Estimated GFR > 60, BUN/Creatinine Ratio 27.1 H, Total Bilirubin 0.8, Direct Bilirubin 0.5 H, AST 20, ALT 9 L, Alkaline Phosphatase 163 H, Total Protein 6.4, Albumin 3.0 L, CBC w Diff NO MAN DIFF REQ, RBC 3.95 L, MCV 86.5, MCH 28.0, MCHC 32.4 L, RDW 15.9 H, MPV 8.3, Gran % 78.5 H, Lymphocytes % 11.7 L, Monocytes % 7.6, Eosinophils % 2.0, Basophils % 0.2, Absolute Granulocytes 7.6 H, Absolute Lymphocytes 1.1 L, Absolute Monocytes 0.7 H, Absolute Eosinophils 0.2, Absolute Basophils 0 12/14/17 1447: Urinalysis LIGHT H, Urine Color YEL, Urine Clarity CLEAR, Urine pH 6.0, Ur Specific [place] 1.020, Urine Protein TRACE H, Urine Ketones NEG, Urine Nitrite NEG, Urine Bilirubin NEG, Urine Urobilinogen 0.2, Ur Leukocyte Esterase NEG, Ur Microscopic SEDIMENT EXAMINED, Urine RBC 10-15 H, Urine WBC 1-3 H, Ur Epithelial Cells FEW, Urine Bacteria FEW H, Hyaline Casts RARE H, Granular Casts RARE H, Urine Mucus FEW, Urine Hemoglobin TRACE-INTACT H, Urine Glucose NEG 12/14/17 1140: Anion Gap 9, Estimated GFR > 60, BUN/Creatinine Ratio 26.7 H, Glucose 111 H, Calcium 9.1, Total Bilirubin 0.8, AST 24, ALT 13 L, Alkaline Phosphatase 183 H , Creatine Kinase 32 L, Troponin I < 0.01, Total Protein 6.6, Albumin 3.3 L, Globulin 3.3, Albumin/Globulin Ratio 1.0 L, CBC w Diff NO MAN DIFF REQ, RBC 4.16 L, MCV 86.2, MCH 28.8, MCHC 33.5, RDW 15.9 H, MPV 8.1, Gran % 91.9 H, Lymphocytes % 3.1 L, Monocytes % 4.9, Eosinophils % 0.1, Basophils % 0, Absolute Granulocytes 11.7 H, Absolute Lymphocytes 0.4 L, Absolute Monocytes 0.6, Absolute Eosinophils 0, Absolute Basophils 0 Assessment/Plan Assessment: 81-year-old gentleman with past medical history of peptic ulcer disease, dyslipidemia, diverticulosis, colonic polyps, Parkinson's disease, anxiety, benign prostatitic hypertrophy, GI bleed, was brought in to [facility] due to bilateral lower extremity pain, back pain status post secondary to to fall 2 months ago. Assessment and plan 1. Physical deconditioning/ Gait instability 2. Parkinsonism * Patient's pain in both thigh is much better today. Patient is on Percocet, Tylenol, gabapentin 100 3 times a day for the same. * Patient will be seen and evaluated by physical therapy and occupational therapy. * Discharge disposition will be depending upon gait and stability. * Continue home medications tamsulosin, venlafaxine, statin. Alendronate [was held in view of acute fracture]. * Diet-regular diet * DVT prophylaxis-Lovenox * Code-full code Problem List: 1. Compression fracture of L2 lumbar vertebra 2. Compression fracture of L1 lumbar vertebra 3. Parkinson's disease Pain Ratin Pain Location: both thigh Pain Goal: Remain pain free Pain Plan: tylenol Tomorrow's Labs & Rationales: none Alisia Michaels MD 12/15/17 1218: Attending MD Review Statement Attending Statement Attending MD Statement: examined this patient, discuss w/resident/PA/IT SECURITY CONSULTING DIRECTOR, agreed w/resident/PA/IT SECURITY CONSULTING DIRECTOR, reviewed EMR data (avail), discussed with nursing, discussed with case mgmt, reviewed images, amended to note Attending Assessment/Plan: Patient seen and examined patient seen and examined, overall feeling better today. Claims that lower extremity pain has improved. The pain medication has helped. Otherwise vital signs are stable. I reviewed the labs. Patient has been seen by physical therapy and they recommended rehabilitation. Continue current pain management as well as all other medications. Patient on pharmacologic DVT px.
[2017-12-15 06:12] VITALS: BP 102/60
[2017-12-15 08:27] LABS: ABSOLUTE BASOPHIL COUNT 0 /CUMM (0.0-0.2); ABSOLUTE EOSINOPHIL COUNT 0.2 /CUMM (0.0-0.7); ABSOLUTE GRANULOCYTE CT 7.6 /CUMM (1.4-6.5); ABSOLUTE LYMPH COUNT 1.1 /CUMM (1.2-3.4); ABSOLUTE MONOCYTE COUNT 0.7 /CUMM (0.10-0.60); BASOPHIL % 0.2 % (0.0-2.0); GRANULOCYTE % 78.5 % (42.2-75.2); HEMATOCRIT 34.2 % (42-52); MEAN CORPUSCULAR HGB CONC 32.4 G/DL (33.0-37.0); MEAN CORPUSCULAR VOLUME 86.5 FL (80.0-94.0); MEAN PLATELET VOLUME 8.3 FL (7.4-10.4); PLATELET COUNT 409 /CUMM (130-400); RBC DISTRIBUTION WIDTH 15.9 % (11.5-14.5); RED BLOOD CELL CT 3.95 /CUMM (4.70-6.10); WHITE BLOOD CELL COUNT 9.6 /CUMM (4.8-10.8)
--- NOTE | 2017-12-15 09:54 | PN- Student ---
Subjective Subjective: No acute events overnight. Patient slept the whole night. His pain has decreased. Still unable to walk or sit due to burning pain. Objective Objective: Vital Signs Date Time Temp Pulse Resp B/P B/P Pulse O2 O2 Flow FiO2 Mean Ox Delivery Rate 12/15 0612 98.3 93 20 102/60 93 Room Air 12/14 2133 98.2 102 20 102/64 92 Room Air 12/14 1919 Room Air 12/14 1645 99.1 95 18 122/60 94 Room Air 12/14 1518 99.1 85 20 119/58 94 Room Air Room Air 12/14 1328 98.2 80 20 127/67 97 Room Air 12/14 1022 Room Air Room Air 12/14 1012 98.4 88 20 139/80 96 Room Air ED Intake and Output 12/15 0000 12/14 1200 Intake Total 200 0 Output Total 425 Balance -225 0 Intake, Oral 200 0 Output, Urine 425 Patient 156 lb Weight Results Results: Laboratory Tests 12/15/17 0735: Anion Gap 9, Estimated GFR > 60, BUN/Creatinine Ratio 27.1 H, Total Bilirubin 0.8, Direct Bilirubin 0.5 H, AST 20, ALT 9 L, Alkaline Phosphatase 163 H, Total Protein 6.4, Albumin 3.0 L, CBC w Diff NO MAN DIFF REQ, RBC 3.95 L, MCV 86.5, MCH 28.0, MCHC 32.4 L, RDW 15.9 H, MPV 8.3, Gran % 78.5 H, Lymphocytes % 11.7 L, Monocytes % 7.6, Eosinophils % 2.0, Basophils % 0.2, Absolute Granulocytes 7.6 H, Absolute Lymphocytes 1.1 L, Absolute Monocytes 0.7 H, Absolute Eosinophils 0.2, Absolute Basophils 0 12/14/17 1447: Urinalysis LIGHT H, Urine Color YEL, Urine Clarity CLEAR, Urine pH 6.0, Ur Specific [place] 1.020, Urine Protein TRACE H, Urine Ketones NEG, Urine Nitrite NEG, Urine Bilirubin NEG, Urine Urobilinogen 0.2, Ur Leukocyte Esterase NEG, Ur Microscopic SEDIMENT EXAMINED, Urine RBC 10-15 H, Urine WBC 1-3 H, Ur Epithelial Cells FEW, Urine Bacteria FEW H, Hyaline Casts RARE H, Granular Casts RARE H, Urine Mucus FEW, Urine Hemoglobin TRACE-INTACT H, Urine Glucose NEG 12/14/17 1140: Anion Gap 9, Estimated GFR > 60, BUN/Creatinine Ratio 26.7 H, Glucose 111 H, Calcium 9.1, Total Bilirubin 0.8, AST 24, ALT 13 L, Alkaline Phosphatase 183 H , Creatine Kinase 32 L, Troponin I < 0.01, Total Protein 6.6, Albumin 3.3 L, Globulin 3.3, Albumin/Globulin Ratio 1.0 L, CBC w Diff NO MAN DIFF REQ, RBC 4.16 L, MCV 86.2, MCH 28.8, MCHC 33.5, RDW 15.9 H, MPV 8.1, Gran % 91.9 H, Lymphocytes % 3.1 L, Monocytes % 4.9, Eosinophils % 0.1, Basophils % 0, Absolute Granulocytes 11.7 H, Absolute Lymphocytes 0.4 L, Absolute Monocytes 0.6, Absolute Eosinophils 0, Absolute Basophils 0 Assessment/Plan Assessment: Mr. Mathews is 81 y/o gentleman with a PMH of peptic ulcer disease, dyslipidemia, diverticulosis, colonic polyps, Parkinson's disease, anxiety, benign prostatitic hypertrophy and GI bleed, who was brought in to [facility] due to bilateral lower extremity pain and back pain secondary to a fall that he had 2 months ago, during which he broke his pelvis. 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 Problem list and Plan: 1. Back and leg pain: - Pain management: We are going to administer Acetaminophen for back pain as the pain seems to be caused by the compression fractures that were seen in L1 & L2. Gabapentin will be administered for leg pain as ew think it is neuropathic. The patient uses Percocet for pain relief and it will be available for administration as needed. - PT consult - Orthopedic visit as an outpatient 2. Parkinson's disease: - Verify recent change in Sinemet dosage as that may be contributing to his recurrent falls - Follow up with neuro as an outpatient to assess if Sinemet should be continue at the increased dose (is it still effective?) or if it should be change to another medication (dopamine agonists? Selegiline? Entacapone?) 3. BPH: - Stop Finasteride 4. Dyslipidemia: - Stop statin as the dose is too high (80 mg). Due to the patient's age, use of statins should be reevaluated as high cholesterol is normal in increased age. The use of such high doses has been linked to myopathy and weakness (which may contribute to the patient's recurrent falls) so if cholesterol control is crucial, a change to another medication should be considered. Follow with PCP to assess present need and/or change in hypercholesterolemia management. 5. Anxiety: - Stop Venlafaxine as it may be the cause of the patien's current complain - Follow up with PCP/psychiatry for a new medication for the patient psychiatric complains
[2017-12-15 14:51] VITALS: BP 118/60
--- NOTE | 2017-12-15 14:58 | Discharge Summary ---
Visit Information Visit Dates Admission Date: 12/14/17 Discharge Date: 12/17/17 Hospital Course Course Attending Physician: Alisia Michaels MD Primary Care Physician: Remington Woodward MD Hospital Course: 81-year-old gentleman with past medical history of Parkinson's disease, recent pelvic fracture in October 05, hyperlipidemia, diverticulosis, BPH who was brought in to the ED by his daughter with complaints of bilateral thigh pain with no radiation. Prior to the admission, patient was in his usual state of health, but was experiencing some degree of pain in his thighs, which was burning in sensation without any aggravating or mitigating factors. On the day of admission, patient woke up with severe 10/10 bilateral thigh pain. He further noted some decreased sensation. Patient denied any fall, loss of consciousness, hypertension, dizziness, incontinence of bowel or bladder, chest pain or shortness of breath. Patient lives with his daughter and has a health aide at home. Vitals on presentation: Temperature 99.1, pulse 80-95, respiratory rate 18-20, blood pressure 132/60, and saturations 97 on room air. Physical exam was largely benign, and at patient's reported baseline. Labs. WBC 12.7 with no bands. H&H 12/35.9 and platelet count 426. Serum chemistries were normal except for mildly elevated bicarbonate of 31. Chest x-ray revealed no acute abnormality of the chest. [facility] CT showed Skeletal findings include diffuse osteoporosis, compression fractures of the L1 and L2 vertebral bodies, and insufficiency fractures of the sacrum, adjacent left iliac bone and pubic rami. 1. Insufficiency fractures of the sacrum, adjacent left iliac bone and pubic rami. Early mobilization and optimal pain control was recommnded. Patient was evaluated by PT and a short term rehabilitation at a residential facility is advised. 2. Bilateral thigh pain. Likely a result of inguinal impingement of cutaneous femoral nerve. Patient should work with PT and inguinal ligament stretching should be helpfiul. Trial of Gabapentin for neurological nature of the pain. 3. Severe osteoporosis. Unclear if patient was taking Alendronate at home. Resume Alendronate after following up with PCP as an outpatient. 4. Parkinsonism. Follow up with Neurologist as an outpatient. 5. Patient was also on high dose Simvastatin 80 mg. This has been associated with myopathy in elderly. Recommend switching to other statin at a lower dose. All other meds for BPH were resumed. Full code Regular diet Lovenox for DVT ppx was used. Allergies: Coded Allergies: NO KNOWN ALLERGIES (07/10/11) Disposition Summary Disposition Principal Diagnosis: Insufficiency fractures of the sacrum, adjacent left iliac bone and pubic rami. Additional Diagnosis: Diffuse osteoporosis, compression fractures of the L1 and L2 vertebral bodies Discharge Disposition: SNF Discharge Instructions General Discharge Information Code Status: Full Code Patient's Diet: Regular diet Patient's Activity: As tolerated Follow-Up Instructions/Appts: Please follow up with PCP as an outpatient. Medications at Discharge Discharge Medications: Continue taking these medications: Tamsulosin HCl (Tamsulosin HCl) 0.4 MG CAP.ER.24H 2 Capsule ORAL DAILY Qty = 60 Finasteride (Finasteride) 5 MG TABLET 1 Tablet ORAL DAILY Qty = 30 Simvastatin (Simvastatin*) 80 MG TABLET 1 Tablet ORAL DAILY Qty = 30 [place]-3 Fatty Acids/Fish Oil (Fish Oil 1,000 MG Capsule) 340 MG-1,000 MG CAPSULE 2 Capsule ORAL DAILY Venlafaxine HCl (Venlafaxine HCl ER) 75 MG CAP.ER.24H 1 Capsule ORAL DAILY Qty = 30 Carbidopa/Levodopa (Sinemet Cr 50-200 Tablet) 50 MG-200 MG TABLET.ER 1 Tablet ORAL THREE TIMES DAILY Qty = 1 Oxycodone HCl/Acetaminophen (Percocet 5-325 MG Tablet) 5 MG-325 MG TABLET 1 Tablet ORAL EVERY SIX HOURS as needed for pain Start taking the following new medications: Gabapentin (Gabapentin) 100 MG CAPSULE 100 Milligram ORAL THREE TIMES DAILY Qty = 24 No Refills Acetaminophen (Tylenol) 325 MG TABLET 650 Milligram ORAL EVERY SIX HOURS as needed for PAIN SCALE 4-6 (MODERATE) Qty = 14 No Refills Copies To: Crissy AZUL,Remington Lira Attending Review Statement Documenting Attending: Brando AZUL,Alisia
[2017-12-15 22:00] VITALS: BP 124/76
[2017-12-16 06:24] VITALS: BP 132/82
--- NOTE | 2017-12-16 07:09 | PN- Housestaff ---
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 No overnight events. Complaints of right lateral hip pain. Denies shortness of breath, back pain. Review of Systems Constitutional: Reports: no symptoms, see HPI. Objective Last 24 Hrs of Vital Signs/I&O Vital Signs Date Time Temp Pulse Resp B/P B/P Pulse O2 O2 Flow FiO2 Mean Ox Delivery Rate 12/17 623 98.0 88 20 132/82 93 12/15 2200 98.6 100 19 124/76 94 Room Air 12/15 1451 98.1 92 20 118/60 93 Room Air Intake & Output 12/16 1600 12/16 0800 12/16 0000 Intake Total 300 Output Total 350 500 Balance -350 -200 Intake, IV 100 Intake, Oral 200 Output, Urine 350 500 Patient 143 lb Weight Weight Bed scale Measurement Method Physical Exam General Appearance: Alert, Oriented X3, Cooperative, No Acute Distress Cardiovascular: Regular Rate, Normal S1, Normal S2, No Murmurs Lungs: Clear to Auscultation, Normal Air Movement Abdomen: Soft, No Tenderness, No Hepatospenomegaly Neurological: Strength at 5/5 X4 Ext, Normal Tone, Sensation Intact, Cranial Nerves 3-12 NL Extremities: No Edema, Normal Pulses Current Medications: Current Medications Sig/Alexandra Start time Last Medication Dose Route Stop Time Status Admin Acetaminophen 650 MG Q6 PRN 12/16 1030 AC PO Acetaminophen 1,000 MG Q12 12/14 2100 DC 12/16 IV 0915 Carbidopa/Levodopa 1 TAB TID 12/15 2100 AC 12/16 PO 0911 Carbidopa/Levodopa 1 TAB TID 12/14 1551 DC 12/15 PO 1343 Docusate Sodium 100 MG BID 12/16 1030 AC 12/16 PO 1245 Enoxaparin Sodium 40 MG DAILY 12/15 0900 AC 12/16 SC 0914 Finasteride 5 MG DAILY 12/14 1551 AC 12/16 PO 0911 Fish Oil 2,100 MG DAILY 12/15 0900 AC 12/16 PO 0908 Gabapentin 100 MG TID 12/15 0900 AC 12/16 PO 0911 Oxycodone/ 1 TAB Q6P PRN 12/14 1545 AC 12/16 Acetaminophen PO 1247 Patient Medication 1 ED ONE ONE 12/16 1115 DC 12/16 Teaching ED 12/16 1116 1246 Patient Medication 1 ED ONE ONE 12/15 1900 DC Teaching ED 12/15 1901 Polyethylene Glycol 17 GM DAILY 12/16 1020 AC 12/16 PO 1245 Venlafaxine HCl 75 MG DAILY 12/15 0900 AC 12/16 PO 0911 Assessment/Plan Assessment: 81-year-old gentleman with past medical history of peptic ulcer disease, dyslipidemia, diverticulosis, colonic polyps, Parkinson's disease, anxiety, benign prostatitic hypertrophy, GI bleed, was brought in to [facility] due to bilateral lower extremity pain, back pain status post secondary to to fall 2 months ago. Assessment and plan 1. Physical deconditioning/ Gait instability 2. Parkinsonism * Patient's pain in both thigh is much better today, though complains of fibroid and right lateral hip pain. Patient is on Percocet, Tylenol, gabapentin 100 3 times a day for the same. We will continue the same. * Patient was seen by physical therapy who suggested short-term rehabilitation. * Continue home medications tamsulosin, venlafaxine, statin. Alendronate [was held in view of acute fracture]. * Diet-regular diet * DVT prophylaxis-Lovenox * Code-full code Problem List: 1. Inability to bear weight 2. Compression fracture of L2 lumbar vertebra 3. Parkinson's disease Pain Ratin Pain Location: Her right lateral hip pain Pain Goal: Remain pain free Pain Plan: tylenol Tomorrow's Labs & Rationales: cbc,bep
--- NOTE | 2017-12-16 13:51 | PN- Att Addend ---
Attending Addendum Attending Brief Note Patient seen and examined, claims that his pain is overall better controlled. Vital Signs Date Time Temp Pulse Resp B/P B/P Pulse O2 O2 Flow FiO2 Mean Ox Delivery Rate 12/16 0624 98.0 88 20 132/82 93 12/15 2200 98.6 100 19 124/76 94 Room Air 12/15 1451 98.1 92 20 118/60 93 Room Air 12/15 1419 Room Air Room Air on exam; aox3, nad. cv; s1,s2, rrr resp; clear abd; soft, nt, bs+ ext; no edema no labs. A/P; 82-year-old male with past medical history significant for Parkinson's disease, hyperlipidemia and history of pelvic fracture in the past admitted with bilateral lower extremity excruciating pain. Patient also has difficulty in ambulating. Patient seen by physical therapy and the recommended short-term rehabilitation. Currently patient's pain is controlled with Tylenol, gabapentin and Percocet. He can be continued on those medications. Patient actively working with physical therapy. He is on Lovenox for DVT px and likely tomorrow he will be discharged to rehabilitation.
--- NOTE | 2017-12-16 14:07 | PN- Student ---
Subjective Subjective: No acute events overnight. Patient's pain is controlled. Patient is happy because it's his birthday. Objective Objective: Last 24 Hrs of Vital Signs/I&O Vital Signs Date Time Temp Pulse Resp B/P B/P Pulse O2 O2 Flow FiO2 Mean Ox Delivery Rate 12/16 0624 98.0 88 20 132/82 93 12/15 2200 98.6 100 19 124/76 94 Room Air 12/15 1451 98.1 92 20 118/60 93 Room Air Intake & Output 12/16 1600 12/16 0800 12/16 0000 Intake Total 300 Output Total 350 500 Balance -350 -200 Intake, IV 100 Intake, Oral 200 Output, Urine 350 500 Patient 143 lb Weight Weight Bed scale Measurement Method Patient seems comfortable and happy with his birthday cake. Results Results: Laboratory Tests Assessment/Plan Assessment: Mr. Mathews is 81 y/o gentleman with a PMH of peptic ulcer disease, dyslipidemia, diverticulosis, colonic polyps, Parkinson's disease, anxiety, benign prostatitic hypertrophy and GI bleed, who was brought in to [facility] due to bilateral lower extremity pain and back pain secondary to a fall that he had 2 months ago, during which he broke his pelvis. 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 Problem list and Plan: 1. Back and leg pain: - Pain management: We are going to administer Acetaminophen for back pain as the pain seems to be caused by the compression fractures that were seen in L1 & L2. Gabapentin will be administered for leg pain as ew think it is neuropathic. The patient uses Percocet for pain relief and it will be available for administration as needed. - PT consult - Orthopedic visit as an outpatient 2. Parkinson's disease: - Verify recent change in Sinemet dosage as that may be contributing to his recurrent falls - Follow up with neuro as an outpatient to assess if Sinemet should be continue at the increased dose (is it still effective?) or if it should be change to another medication (dopamine agonists? Selegiline? Entacapone?) 3. BPH: - Stop Finasteride 4. Dyslipidemia: - Stop statin as the dose is too high (80 mg). Due to the patient's age, use of statins should be reevaluated as high cholesterol is normal in increased age. The use of such high doses has been linked to myopathy and weakness (which may contribute to the patient's recurrent falls) so if cholesterol control is crucial, a change to another medication should be considered. Follow with PCP to assess present need and/or change in hypercholesterolemia management. 5. Anxiety: - Stop Venlafaxine as it may be the cause of the patien's current complain - Follow up with PCP/psychiatry for a new medication for the patient psychiatric complains
[2017-12-16] MEDS ORDERED: SINEMET CR 50-1 EACH PO (14:45)
[2017-12-16 14:55] VITALS: BP 114/70
[2017-12-16 22:16] VITALS: BP 148/88
[2017-12-17 06:42] VITALS: BP 140/82
--- NOTE | 2017-12-17 07:11 | PN- Housestaff ---
Vikas AZUL,Beatriz 12/17/17 0711: Subjective Follow-up For: Pain both thigh with compression L1-L2 fracture. Complaints: no complaints Subjective: Patient seen and examined at bedside. No overnight events. Denies pain both hips, shortness of breath. Review of Systems Constitutional: Reports: no symptoms, see HPI. Objective Last 24 Hrs of Vital Signs/I&O Vital Signs Date Time Temp Pulse Resp B/P B/P Pulse O2 O2 Flow FiO2 Mean Ox Delivery Rate 12/17 0642 98.2 89 20 140/82 91 Room Air 12/16 2216 98.5 93 20 148/88 92 Room Air 12/16 1455 98.1 91 20 114/70 93 Room Air Intake & Output 12/17 1600 12/17 0800 12/17 0000 Intake Total Output Total 500 Balance -500 Output, Urine 500 Patient 143 lb Weight Physical Exam General Appearance: Alert, Oriented X3, Cooperative, No Acute Distress Cardiovascular: Regular Rate, Normal S1, Normal S2, No Murmurs Lungs: Clear to Auscultation, Normal Air Movement Abdomen: Soft, No Tenderness, No Hepatospenomegaly Neurological: Normal Speech, Strength at 5/5 X4 Ext, Normal Tone, Sensation Intact Extremities: No Edema, Normal Pulses Current Medications: Current Medications Sig/Alexandra Start time Last Medication Dose Route Stop Time Status Admin Acetaminophen 650 MG Q6 PRN 12/16 1030 AC PO Acetaminophen 1,000 MG Q12 12/14 2100 DC 12/16 IV 0915 Bisacodyl 10 MG ONCE ONE 12/17 0815 DC 12/17 AL 12/17 0816 0930 Carbidopa/Levodopa 1 TAB TID 12/16 2100 AC 12/17 PO 0840 Carbidopa/Levodopa 1 TAB TID 12/15 2100 DC 12/16 PO 0911 Docusate Sodium 100 MG BID 12/16 1030 AC 12/17 PO 0839 Enoxaparin Sodium 40 MG DAILY 12/15 09 AC 12/17 SC 0838 Finasteride 5 MG DAILY 12/14 1551 AC 12/17 PO 0840 Fish Oil 2,100 MG DAILY 12/15 0900 AC 12/16 PO 0908 Gabapentin 100 MG TID 12/15 0900 AC 12/17 PO 0840 Oxycodone/ 1 TAB BID PRN 12/17 0815 AC Acetaminophen PO Oxycodone/ 1 TAB Q6P PRN 12/14 1545 DC 12/16 Acetaminophen PO 1247 Patient Medication 1 ED ONE ONE 12/16 1115 DC 12/16 Teaching ED 12/16 1116 1246 Polyethylene Glycol 17 GM DAILY 12/16 1020 AC 12/17 PO 0838 Senna/Docusate Sodium 1 TAB BID 12/17 0715 DC 12/17 PO 0839 Venlafaxine HCl 75 MG DAILY 12/15 0900 AC 12/17 PO 0838 Assessment/Plan Assessment: 81-year-old gentleman with past medical history of peptic ulcer disease, dyslipidemia, diverticulosis, colonic polyps, Parkinson's disease, anxiety, benign prostatitic hypertrophy, GI bleed, was brought in to [facility] due to bilateral lower extremity pain, back pain status post secondary to to fall 2 months ago. Assessment and plan 1. Physical deconditioning/ Gait instability 2. Parkinsonism * Patient's pain in both thigh is much better today. Patient is on Percocet, Tylenol, gabapentin 100 3 times a day for the same. We will continue the same. * Patient was seen by physical therapy who suggested short-term rehabilitation. * Continue home medications tamsulosin, venlafaxine, statin. Alendronate [was held in view of acute fracture]. * Constipation-patient is on MiraLAX and Colace. His last bowel movement was on and November. We will give him Dulcolax suppository today. * Diet-regular diet * DVT prophylaxis-Lovenox * Code-full code patient is a possible discharge to short-term rehabilitation today. Problem List: 1. Compression fracture of L2 lumbar vertebra 2. Compression fracture of L1 lumbar vertebra 3. Parkinson's disease Pain Ratin Pain Location: none Pain Goal: Remain pain free Pain Plan: tylenol Tomorrow's Labs & Rationales: none Brando AZUL,Alisia 12/17/17 1448: Attending MD Review Statement Attending Statement Attending MD Statement: examined this patient, discuss w/resident/PA/SHIFT MGR, agreed w/resident/PA/SHIFT MGR, reviewed EMR data (avail), discussed with nursing, discussed with case mgmt, reviewed images, amended to note Attending Assessment/Plan: Patient seen and examined, Feels ok. Pain is still not well controlled. Pt has a bed available at [facility]. Will increase the dose of Gabapentin. Continue other current meds. Will discharge pt to [facility].
--- NOTE | 2017-12-17 08:00 | Patient Discharge Instructions ---
Discharge Instructions General Discharge Information You were seen/treated for: Pain bilateral thigh Compression fracture L1, L2 Watch for these problems: Case of fall, back pain, shortness of breath, chest pain, bilateral thigh pain please go to nearest emergency room Special Instructions: please follow-up with your primary care provider/neurologist within 1-2 weeks of discharge. Gabapentindose can be increased depending upon severity of pain Diet Continue normal diet: Yes Activity Full Activity/No Limits: No Activity Self Limited: Yes Acute Coronary Syndrome Inclusion Criteria At DC or during hospital stay patient has or had the following: ACS DIAGNOSIS No Discharge Core Measures Meds if any: Prescribed or Continued at Discharge Meds if any: NOT Prescribed or Continued at Discharge Congestive Heart Failure Inclusion Criteria At DC or during hospital stay patient has or had the following: CHF DIAGNOSIS No Discharge Core Measures Meds if any: Prescribed or Continued at Discharge Meds if any: NOT Prescribed or Continued at Discharge Cerebrovascular accident Inclusion Criteria At DC or during hospital stay patient has or had the following: CVA/TIA Diagnosis No Discharge Core Measures Meds if any: Prescribed or Continued at Discharge Meds if any: NOT Prescribed or Continued at Discharge Venous thromboembolism Inclusion Criteria VTE Diagnosis No VTE Type NONE VTE Confirmed by (Test) NONE Discharge Core Measures - Per Current guidelines, there needs to be overlap - treatment for the first 5 days of Warfarin therapy. - If discharged on Warfarin prior to 5 days of - overlap therapy, the patient will need to be - assessed for post discharge needs including - *Post discharge parental anticoagulation - *Warfarin and/or parental anticoagulation education - *Follow up date to check INR post discharge At least 5 days overlap therapy as Inpatient No Meds if any: Prescribed or Continued at Discharge Note: Overlap Therapy is Warfarin and Anticoagulant Meds if any: NOT Prescribed or Continued at Discharge
[2017-12-17] MEDS ORDERED: GABAPENTIN100 M2 PO ×3 (08:05→15:40)
[2017-12-17] MEDS ORDERED: PERCOCET 5-3251 EACH PO (08:07)
[2017-12-17] MEDS ORDERED: TYLENOL325 M1 PO (08:50)
--- NOTE | 2017-12-17 10:06 | PN- Student ---
Subjective Subjective: No acute events overnight. Patient still haven't had a bowel movement. Objective Objective: Vital Signs Date Time Temp Pulse Resp B/P B/P Pulse O2 O2 Flow FiO2 Mean Ox Delivery Rate 12/17 0642 98.2 89 20 140/82 91 Room Air 12/16 2216 98.5 93 20 148/88 92 Room Air 12/16 1455 98.1 91 20 114/70 93 Room Air ED Intake and Output 12/17 0000 12/16 1200 Intake Total 770 Output Total 850 600 Balance -80 -600 Intake, IV 150 Intake, Oral 620 Number 0 Bowel Movements Output, Urine 850 600 Patient 143 lb Weight Weight Bed scale Measurement Method Patient seems comfortable is cooperative. Assessment/Plan Assessment: Mr. Mathews is 81 y/o gentleman with a PMH of peptic ulcer disease, dyslipidemia, diverticulosis, colonic polyps, Parkinson's disease, anxiety, benign prostatitic hypertrophy and GI bleed, who was brought in to [facility] due to bilateral lower extremity pain and back pain secondary to a fall that he had 2 months ago, during which he broke his pelvis. 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 He has been treated with Acetaminophen, Gabapentin and Percocet as needed, which has decreased his pain. Patient is being discharged for short term rehab today. Problem list and Plan: 1. Back and leg pain: - Pain management: Continue taking Acetaminophen, Gabapentin and Percocet as needed. - Physical therapy at short term rehab - Orthopedic visit as an outpatient 2. Parkinson's disease: - Verify with his neurologist recent change in Sinemet dosage as that may be contributing to his recurrent falls - Follow up with neuro as an outpatient to assess if Sinemet should be continue at the increased dose (is it still effective?) or if it should be change to another medication (dopamine agonists? Selegiline? Entacapone?) 3. BPH: - Stop Finasteride. Follow up with PCP to assess the need to keep medicating him for BPH. 4. Dyslipidemia: - Stop statin as the dose is too high (80 mg). Due to the patient's age, use of statins should be reevaluated as high cholesterol is normal in increased age. The use of such high doses has been linked to myopathy and weakness (which may contribute to the patient's recurrent falls) so if cholesterol control is crucial, a change to another medication should be considered. Follow with PCP to assess present need and/or change in hypercholesterolemia management. 5. Anxiety: - Stop Venlafaxine as it may be the cause of the patien's current complain - Follow up with PCP/psychiatry for a new medication for the patient psychiatric complains
[2017-12-17 14:34] VITALS: BP 140/82
[2017-12-17 15:00] VITALS: BP 110/80
[2018-01-31] MEDS ORDERED: OMEPRAZOLE40 M1 PO (15:51)
[2018-01-31] MEDS ORDERED: AUGMENTIN250 MG/51 PO (15:51)
== END 2017-12-17 16:40 | DRG 544 ==
LOC: ERH 10:11 → 2NB 14:15 → ERHI 14:15 → ENRESERV 15:47 → ENTRNSPT 16:15 → EDTRNSPTSTS 16:31 → EDTRNSPT 16:31 → 2NB 16:32 → CMPTRNSPT 16:52 → 2NB 21:11 → ENPENDDIS 12-15 14:40 → 2NB 12-17 16:40
PROVIDERS: Internal Medicine Hematology & Oncology; Physician Assistant
DX: M80.88XA Other osteoporosis with current pathological fracture, vertebra(e), initial encounter for fracture (principal); G20 Parkinson's disease; M80.852A Other osteoporosis with current pathological fracture, left femur, initial encounter for fracture; R26.2 Difficulty in walking, not elsewhere classified; F41.9 Anxiety disorder, unspecified; E78.5 Hyperlipidemia, unspecified; K57.90 Diverticulosis of intestine, part unspecified, without perforation or abscess without bleeding; N40.0 Benign prostatic hyperplasia without lower urinary tract symptoms; K27.9 Peptic ulcer, site unspecified, unspecified as acute or chronic, without hemorrhage or perforation; G57.83 Other specified mononeuropathies of bilateral lower limbs
CPT/HCPCS: 2NSBP; 36592; 71045; 74176; 81001; 82436; 93005; 93010; 96374; 96376; 97161-GP; 97166-GO; 97530-GO; J0131; J1650